=== PATIENT | male | born 1995 | race Caucasian/White ===

== ENCOUNTER 2018-02-09 08:41 | Emergency (ER) | payer MEDICAID ==
[~2018-02-09] VITALS: Ht 182.9 cm; Wt 94.3 kg
[2018-02-09 08:49] VITALS: Ht 182.9 cm; Wt 94.3 kg
[2018-02-09 09:51] LABS: BASOPHIL % 0.2 % (0-2); PLATELET COUNT 222 x10^3mcL (130-400); RED CELL DISTRIBUTION WIDTH 13.5 % (11.5-14.5)
[2018-02-09 10:05] LABS: CARBON DIOXIDE 23.9 mmol/L (21-32); CHLORIDE SERUM 105 mmol/L (98-107); GFR1 > 60 mL/min; GLUCOSE SERUM 95 mg/dL (74-106); POTASSIUM SERUM 3.6 mmol/L (3.5-5.1); SODIUM SERUM 141 mmol/L (136-145)
[2018-02-09 10:10] LABS: ALBUMIN 4.2 g/dL (3.4-5.0); ALKALINE PHOSPHATASE 78 U/L (46-116); ALT/SGPT 20 U/L (16-63); AST/SGOT 15 U/L (15-37); BILIRUBIN TOTAL 0.96 mg/dL (0.20-1.00); TOTAL PROTEIN, SERUM 7.8 g/dL (6.4-8.2)
[2018-02-09 11:10] LABS: AMPHETAMINE QUAL UR NONE DETECTED (See below)
[2018-02-09 12:20] VITALS: BP 120/64
== END 2018-02-09 12:20 | disposition home or self-care (01) ==
LOC: ED 08:41
PROVIDERS: Specialist
DX: F41.9 Anxiety disorder, unspecified (principal); F19.10 Other psychoactive substance abuse, uncomplicated
CPT/HCPCS: G0480; J2060; J7030